=== PATIENT | female | born 1965 | race Caucasian/White ===

== ENCOUNTER 2020-11-22 09:07 | Outpatient (REF) | payer OTHER, SELFPAY ==
--- NOTE | 2020-11-22 09:11 | MM_ITS ---
EXAMINATION: MM SCREENING DIGITAL BREAST TOMOSYNTHESIS, BILATERAL CLINICAL INFORMATION: Screening. Asymptomatic. The lifetime risk of breast cancer based on the Tyrer-Cuzick Model is 7%. COMPARISON: Mammography: 12/26/2018, 12/06/2017, 12/13/2016 TECHNIQUE: Digital breast tomosynthesis is performed in both the craniocaudal and mediolateral oblique views along with computer-aided detection (CAD). Synthesized 2D images are generated from the tomosynthesis. FINDINGS: The breasts are almost entirely fatty (ACR BI-RADS breast composition Category a). There are no significant masses, abnormal calcifications, or other abnormalities. No significant changes from prior studies. MM/MM tomosynthesis screening BI IMPRESSION: No mammographic evidence of malignancy. ASSESSMENT: BI-RADS 1: Negative RECOMMENDATION: Routine annual mammography screening. This patient's information was entered into a reminder system with a target due date for their next mammogram.
== END 2020-11-22 09:08 | disposition home or self-care (01) ==
LOC: HO.MAMMO 09:07
PROVIDERS: PCP Internal Medicine; Visit Provider Obstetrics & Gynecology
DX: Z12.31 Encounter for screening mammogram for malignant neoplasm of breast (principal)
CPT/HCPCS: 77063; 77067

== ENCOUNTER 2021-11-26 13:07 | Outpatient (REF) | payer OTHER, SELFPAY ==
--- NOTE | ~2021-11-26 | MM_ITS ---
EXAMINATION: MM SCREENING DIGITAL BREAST TOMOSYNTHESIS, BILATERAL CLINICAL INFORMATION: Screening. Asymptomatic. The lifetime risk of breast cancer based on the Tyrer-Cuzick Model is 7%. COMPARISON: Mammography: 11/22/2020, 12/26/2018 TECHNIQUE: Digital breast tomosynthesis is performed in both the craniocaudal and mediolateral oblique views along with computer-aided detection (CAD). Synthesized 2D images are generated from the tomosynthesis. FINDINGS: The breasts are almost entirely fatty (ACR BI-RADS breast composition Category a). Background stromal and fibroglandular densities are stable. No developing density or architectural abnormality. No abnormal calcifications. The axilla and skin contours are unremarkable. MM/MM tomosynthesis screening BI IMPRESSION: No mammographic evidence of malignancy. ASSESSMENT: BI-RADS 1: Negative RECOMMENDATION: Routine annual mammography screening. This patient's information was entered into a reminder system with a target due date for their next mammogram.
== END 2021-11-26 13:08 | disposition home or self-care (01) ==
LOC: HO.MAMMO 13:07
PROVIDERS: PCP Internal Medicine; Visit Provider Internal Medicine
DX: Z12.31 Encounter for screening mammogram for malignant neoplasm of breast (principal)
CPT/HCPCS: 77063; 77067

== ENCOUNTER 2022-12-10 10:34 | Outpatient (REF) | payer OTHER, SELFPAY ==
--- NOTE | ~2022-12-10 | XR_ITS ---
EXAMINATION: XR RIBS, BILATERAL CLINICAL INFORMATION: Pleurodynia. COMPARISON: None. TECHNIQUE: 3 views of the bilateral ribs were obtained. FINDINGS: Lungs are clear. No consolidation, pneumothorax, or pleural effusion. The cardiomediastinal silhouette and pulmonary vasculature are normal. Osseous structures are unremarkable. Ribs are intact. No fractures are identified. XR/XR ribs BI min 4V w CXR1V IMPRESSION: Unremarkable examination.
== END 2022-12-10 10:35 | disposition home or self-care (01) ==
LOC: HO.HMGCX 10:34
PROVIDERS: Visit Provider Physician Assistant
DX: R07.81 Pleurodynia (principal)
CPT/HCPCS: 71111

== ENCOUNTER 2023-03-29 07:44 | Outpatient (REF) | payer OTHER, SELFPAY ==
--- NOTE | ~2023-03-29 | MM_ITS ---
EXAMINATION: MM SCREENING DIGITAL BREAST TOMOSYNTHESIS, BILATERAL CLINICAL INFORMATION: Screening. Asymptomatic. The lifetime risk of breast cancer based on the Tyrer-Cuzick Model is 7%. COMPARISON: Mammography: 11/26/2021, 11/22/2020, 12/26/2018 TECHNIQUE: Digital breast tomosynthesis is performed in both the craniocaudal and mediolateral oblique views along with computer-aided detection (CAD). Synthesized 2D images are generated from the tomosynthesis. FINDINGS: The breasts are almost entirely fatty (ACR BI-RADS breast composition Category a). Background stromal markings and fibroglandular densities are stable. There are no significant masses, abnormal calcifications, or other abnormalities. No architectural abnormality or developing density or significant change from prior studies. The axilla and skin contours are unremarkable. No significant changes from prior studies. MM/MM tomosynthesis screening BI IMPRESSION: No mammographic evidence of malignancy. ASSESSMENT: BI-RADS 1: Negative RECOMMENDATION: Routine annual mammography screening. This patient's information was entered into a reminder system with a target due date for their next mammogram.
== END 2023-03-29 07:45 | disposition home or self-care (01) ==
LOC: HO.MAMMO 07:44
PROVIDERS: PCP Internal Medicine; Visit Provider Internal Medicine
DX: Z12.31 Encounter for screening mammogram for malignant neoplasm of breast (principal)
CPT/HCPCS: 77063; 77067

== ENCOUNTER → 2023-08-27 09:24 | Outpatient (BNVA) | payer OTHER, SELFPAY | PROVIDERS: PCP Internal Medicine; Visit Provider Internal Medicine | DX: S39.012A Strain of muscle, fascia and tendon of lower back, initial encounter (principal); W18.40XA Slipping, tripping and stumbling without falling, unspecified, initial encounter | CPT/HCPCS: 99202 ==

== ENCOUNTER 2023-12-20 18:13 | Emergency (ER) | payer OTHER, SELFPAY ==
--- NOTE | ~2023-12-20 | XR_ITS ---
EXAMINATION: XR CHEST CLINICAL INFORMATION: Concern for aspiration COMPARISON: None available. TECHNIQUE: 2 views of the chest were obtained. FINDINGS: No significant abnormality is noted involving the heart, lungs, mediastinum, bony thorax or soft tissues. XR/XR chest 2V IMPRESSION: Unremarkable examination.
--- NOTE | ~2023-12-20 | CT_ITS ---
EXAMINATION: CT HEAD WITHOUT CONTRAST CLINICAL INFORMATION: Seizure. Syncope. COMPARISON: None available. TECHNIQUE: Contiguous axial imaging was performed from the skull base to vertex without intravenous administration of contrast. This CT examination was performed using dose optimization techniques as appropriate, variously including the following: *Automated exposure control. *Adjustment of mA and/or kV according to patient size (this includes techniques or standardized protocols for targeted exams where dose is matched to indication/reason for exam; i.e. extremities or head). *Use of iterative reconstruction technique. DLP: 626 mGy-cm FINDINGS: There is no evidence of acute intracranial hemorrhage or edematous territorial infarction. Coats-white matter differentiation is preserved. There is no abnormal attenuation within the brain parenchyma. The ventricles are normal in morphology and size. No evidence for obstructive hydrocephalus. Normal positioning of the cerebellar tonsils. The suprasellar cistern remains widely patent. No abnormal mass effect or midline shift. No extra-axial fluid collections. No acute soft tissue or osseous abnormalities. Mild mucosal thickening of the paranasal sinuses. The mastoid air cells and middle ear cavities are clear. CT/CT head/brain wo IV con IMPRESSION: No evidence of acute intracranial hemorrhage or edematous territorial infarction. No abnormal mass effect on the noncontrast evaluation.
[2023-12-20 18:16] VITALS: BP 151/76; PULSE 96; RESP 18; TEMP 36.4; O2SAT 94; BMI 32.1
--- NOTE | 2023-12-20 18:17 | ED.GENADULT ---
HPI - General Adult General Chief complaint: Neuro Symptoms/Deficit Stated complaint: ?Seizure Time Seen by Provider: 12/20/23 18:52 Source: patient and family (patient's son) Mode of arrival: ambulatory Limitations: no limitations History of Present Illness HPI narrative: Patient is a 58 year old assigned female at with no reported medical history presenting to the emergency department today after a syncopal episode. Patient states that yesterday she had a painful headache behind her eyes and continues to have the headache today. Patient states that she went to take a drink of her coffee and felt a large air bubble go down with it, causing pain and pressure in the center of her chest and then she passed out. Patient denies any current dizziness, lightheadedness, abdominal pain, nausea, vomiting, fever, chills, blurry vision, double vision, loss of vision, chest pain, difficulty breathing, shortness of breath, back pain, night sweats, pain with urination, increased urinary frequency, increased urinary urgency, blood in her urine or stool, bowel incontinence, bladder incontinence, bowel retention, bladder retention, or any other complaints at this time. Relieving factors: none Exacerbating factors: none Associated symptoms: syncope Treatments prior to arrival: none Related Data Home Medications Medication Instructions Recorded Confirmed ketoconazole 2 % shampoo topical 12/10/22 Previous Rx's Medication Instructions Recorded cyclobenzaprine 10 mg tablet 10 mg PO BEDTIME PRN muscle spasm 12/10/22 #14 tabs lidocaine 4 % topical patch 1 patch topical DAILY PRN pain #15 12/10/22 (AsperFlex (lidocaine)) ea spirometers and accessories #1 ea 12/10/22 Allergies Allergy/AdvReac Type Severity Reaction Status Date / Time ibuprofen Allergy Hives Verified 12/20/23 18:25 pseudoephedrine Allergy Unknown Verified 12/20/23 18:25 [From [facility]] Review of Systems Constitutional: Constitutional: Reports no additional constitutional complaints, Denies chills, Denies fever(s), Reports headache(s) and Denies night sweats Eyes: Eyes: Reports no additional eye complaints, Denies blurry vision, Denies change in vision, Denies diplopia, Denies eye discharge, Denies loss of vision and Denies eye pain ENT: Denies dizziness and Reports headache(s) Cardiovascular: Cardiovascular: Reports no additional cardiovascular complaints, Denies chest pain, Reports syncope, Denies lightheadedness, Denies Loss of Consciousness and Denies dyspnea Respiratory: Respiratory: Reports no additional respiratory complaints and Denies dyspnea Gastrointestinal: Gastrointestinal: Reports no additional gastrointestinal complaints, Denies abdominal pain, Denies melena, Denies hematochezia, Denies change in bowel habits and Denies change in stool character Genitourinary: Genitourinary: Denies hematuria, Denies urinary frequency, Denies dysuria, Denies urinary incontinence, Denies urinary hesitancy and Denies urinary urgency Musculoskeletal: Musculoskeletal: Reports no additional musculoskeletal complaints, Denies numbness and Denies tingling Neurologic: Denies dizziness, Reports syncope, Reports headache(s), Denies loss of vision, Denies numbness and Denies tingling Psychiatric: Psychiatric: Reports no additional psychiatric complaints Endocrine: Endocrine: Reports no additional endocrine complaints Hematologic/Lymphatic: Hematologic/Lymphatic: Reports no additional hematologic/lymphatic complaints Allergic/Immunologic: Allergic/Immunologic: Reports no additional allergic/immunologic complaints PMFSH Past Medical History Attestation statement: The following information was validated with the patient. (all information validated with the patient's son) Source: old records reviewed, obtained from family (patient's son provided additional history and confirmed the history provided by the patient.) and nursing notes reviewed Social History Social History Alcohol intake: never Smoked in Last 30 Days: No Use of substances other than those prescribed or required for medical reasons: No Advance Directives: No Advance Directives Information Provided: No Patient : No Physical Exam ED Vital Signs: Vital Signs - 24 hr 12/20/23 18:16 12/20/23 19:08 12/20/23 21:06 Temperature 97.6 F 98.5 F 98.5 F Pulse Rate 96 85 67 Respiratory Rate 18 16 18 Blood Pressure 151/76 H 127/78 124/68 Pulse Oximetry 94 96 97 Oxygen Delivery Method Room Air Room Air Room Air BMI result Body Mass Index 32.1 Const General: cooperative, no acute distress, alert and awake Nutritional Appearance: well nourished Orientation/consciousness: patient oriented x3 Limitations: no limitations HENMT Head: Yes normal to inspection and Yes atraumatic Ears: hearing grossly normal bilaterally and external ears normal General nose exam: Normal external nose present, no nasal discharge noted and no epistaxis Face and sinus: Yes normal facial exam, No abrasion and No laceration Mouth: Normal oral and palatal mucosa present, no drooling and no muffled voice Eyes General: appearance normal, both eyes and all related structures Periorbital: periorbital findings normal Eyelids: Yes eyelids normal Conjunctivae: conjunctivae normal Pupils: Equal, round and reactive pupils present EOM: EOMs intact bilaterally Neck Neck: Yes normal visual inspection, Yes full ROM and Yes no lymphadenopathy Chest Chest palpation & inspection: normal inspection of the chest Resp Effort & Inspection: normal respiratory effort and able to speak in complete sentences GI Inspection: Yes normal to inspection Neuro General: patient oriented x3 and moves all extremities Cranial nerves: Yes Equal, round and reactive pupils present Cognition (Neuro): normal cognition Motor exam (neuro): 5/5 motor strength present throughout Sensory Exam: Normal double simultaneous stimulation for sensation Coordination: rriqaz-ko-[id number] test normal Extrem General: Yes normal to inspection, Yes full ROM and Yes capillary refill normal Psych Appearance: grossly normal Mental Status: mental status grossly normal Affect: normal affect Attitude: cooperative Thought process: Normal thought process present Thought content: Normal thought content present Insight: Good insight present (Psych) Course Course Course Narrative: RME:?58 yo female w/ no pmhx here for evaluation of headache, blurred vision, and fatigue x1 day. Reports episode of drinking her coffee this morning, took a big gulp that hurt her throat going down, does not recall what happened after that. states that he watched her eyes rolled into the back of her head which lasted for about 30 seconds. She became pale, diaphoretic and clammy. When she came to she was mildly confused. States that she did not seek medical attention at the time of incident. Reports increased fatigue and continued headache prompting her to come to the ED. denies fever, chills, chest pain, shortness of breath, dyspnea, wheezing, nausea or vomiting. AOX3. No focal neuro deficits. perrla. lungs CTA b/l. labs, lactic, cxr order to r/o aspiration, CT Full HPI, ROS and PE to be performed by the primary ED provider. Medications Administered Discontinued Medications Generic Name Dose Route Start Last Admin Trade Name Freq PRN Reason Stop Dose Admin Sodium Chloride 1,000 mls @ 999 mls/hr 12/20/23 19:30 12/20/23 21:00 Ns IV 12/20/23 20:30 Infused .Q1H1M TATE Infusion Metoclopramide HCl 10 mg 12/20/23 19:21 12/20/23 19:34 Metoclopramide Hcl 10 Mg/2 Ml Vial IVPUSH 12/20/23 19:22 10 mg ONCE ONE Administration Medical Decision Making Medical Decision Making [facility] Narrative: Patient is a 58 year old assigned female at with no reported medical history presenting to the emergency department today with a headache and a syncopal episode. Patient's physical exam was unremarkable. Patient's blood work was unremarkable. Patient's EKG was unremarkable. Patient's chest x-ray and head CT showed no acute process. I explained my physical exam findings as well as all test results to the patient and the patient's son. I answered all questions asked by the patient and the patient's son. I stressed the importance of the patient taking her medication as prescribed. I stressed the importance of the patient following up with her primary care provider and a neurologist. I stressed the importance of the patient returning to the emergency department immediately if her symptoms were to worsen or if she were to develop any dizziness, shortness of breath, difficulty breathing, chest pain, blurry vision, loss of vision, nausea, vomiting, abdominal pain, fever, chills, back pain, or any other complaints. Patient and the patient's son verbalized agreement and understanding with this treatment plan and discharge. Differential Diagnosis Differential Diagnoses: The differential diagnosis associated with the presentation includes Migraine Complex migraine Vasovagal syncope Syncopal episode Admission/Observation Consideration of admission/observation: Escalation of care including admission/observation considered Patient would have been admitted to the hospital had her work up had any findings where hospital admission was appropriate and her clinical presentation warranted hospital admission. Lab Data [facility] Lab Attestation statement: I reviewed the patient's lab results. My interpretation of these results are in the [facility] Rationale portion of this note. 12/20/23 18:28 12/20/23 18:28 Labs: Lab Results 12/20/23 Range/Units 18:28 WBC 5.0 (4.8-10.8) X10*3/uL RBC 4.49 (4.20-5.50) X10*6/uL Hgb 13.5 (12.0-16.0) g/dl Hct 40.3 (37.0-47.0) % MCV 89.8 (80.0-98.0) fL MCH 30.1 (27.0-33.0) pg MCHC 33.5 (31.0-35.0) g/dl RDW 13.3 (11.0-16.0) % Plt Count 237 (160-400) X10*3/uL MPV 10.3 (9.4-12.3) fL Immature Gran % (Auto) 1.2 H (0.0-0.4) % Neut % (Auto) 73.1 H (45-73) % Lymph % (Auto) 13.1 L (20-40) % [place] % (Auto) 12.2 H (2-11) % Eos % (Auto) 0.0 (0-4) % Baso % (Auto) 0.4 (0-2) % Lymph # (Auto) 0.7 L (1.2-4.9) X10*3/uL [place] # (Auto) 0.6 (0.1-1.2) X10*3/uL Eos # (Auto) 0.0 (0.0-0.4) X10*3/uL Baso # (Auto) 0.0 (0.0-0.2) X10*3/uL Abs Immat Gran (auto) 0.06 H (0.00-0.03) X10*3/uL Absolute Neuts (auto) 3.6 (2.0-8.3) x10*3/uL Absolute Nucleated RBC 0.000 (0.0-0.012) X10*3/uL Nucleated RBC % (auto) 0.0 (0.0-0.2) /100WBC Sodium 142 (135-145) mmol/L Potassium 3.9 (3.3-5.1) mmol/L Chloride 106 (96-108) mmol/L Carbon Dioxide 25 (22-29) mmol/L Anion Gap 15 (12-20) BUN 12 (9-16) mg/dL Creatinine 0.98 (0.5-1.4) mg/dL Estim Creat Clear Calc 64.3 Estimated GFR 58 Random Glucose 102 (60-115) mg/dL Lactic Acid 0.6 (0.5-2.0) mmol/L Calcium 9.5 (8.4-10.2) mg/dL Magnesium 1.8 (1.6-2.6) mg/dL Total Bilirubin 0.3 (0.0-1.0) mg/dL Direct Bilirubin 0.2 (0.0-0.5) mg/dL AST 18 (5-31) U/L ALT 17 (0-31) U/L Alkaline Phosphatase 59 (39-117) U/L Troponin I High Sens < 2.7 (<3.5-17.0) ng/L Total Protein 6.9 (6.5-8.0) g/dL Albumin 4.5 (3.5-5.0) g/dL Lipase 28 (8-78) U/L Independent Interpretation I performed an independent interpretation of an: EKG, Plain X-Ray and CT Scan Interpretation: My interpretation is in agreement with the radiologist's impression of this imaging study. EXAMINATION: CT HEAD WITHOUT CONTRAST CLINICAL INFORMATION: Seizure. Syncope. COMPARISON: None available. TECHNIQUE: Contiguous axial imaging was performed from the skull base to vertex without intravenous administration of contrast. This CT examination was performed using dose optimization techniques as appropriate, variously including the following: *Automated exposure control. *Adjustment of mA and/or kV according to patient size (this includes techniques or standardized protocols for targeted exams where dose is matched to indication/reason for exam; i.e. extremities or head). *Use of iterative reconstruction technique. DLP: 626 mGy-cm FINDINGS: There is no evidence of acute intracranial hemorrhage or edematous territorial infarction. Coats-white matter differentiation is preserved. There is no abnormal attenuation within the brain parenchyma. The ventricles are normal in morphology and size. No evidence for obstructive hydrocephalus. Normal positioning of the cerebellar tonsils. The suprasellar cistern remains widely patent. No abnormal mass effect or midline shift. No extra-axial fluid collections. No acute soft tissue or osseous abnormalities. Mild mucosal thickening of the paranasal sinuses. The mastoid air cells and middle ear cavities are clear. CT/CT head/brain wo IV con IMPRESSION: No evidence of acute intracranial hemorrhage or edematous territorial infarction. No abnormal mass effect on the noncontrast evaluation. Dictated By: Meet Barrientos DO Signed By: Electronically signed by Meet aBrrientos DO 12/20/231922 EXAMINATION: XR CHEST CLINICAL INFORMATION: Concern for aspiration COMPARISON: None available. TECHNIQUE: 2 views of the chest were obtained. FINDINGS: No significant abnormality is noted involving the heart, lungs, mediastinum, bony thorax or soft tissues. XR/XR chest 2V IMPRESSION: Unremarkable examination. Dictated By: Jose Dennis Signed By: Electronically signed by Jose Dennis 12/20/232037 Vent. Rate 92 BPM NC interval 146 ms QRS duration 78 ms QT/QTc-Baz 358/442 ms P-R-T axes 34 -5 21 Normal sinus rhythm Cannot rule out anterior infarct, age undetermined Abnormal ECG 12/20/2023 1835 Radiology Impression Discussion of test interpretation with radiology: I have reviewed the radiologist's reading. Independent Historian Clinical information obtained from an independent historian. History obtained from or confirmed by: Other (patient's son provided additional history and confirmed the history provided by the patient.) Discharge Plan Discharge Clinical Impression: Migraine, Syncope, vasovagal Patient Disposition: Home, Self-Care Instructions: Migraine Headache (ED), Syncope (DC) Additional Instructions: Follow up with your primary care provider and a neurologist. Return to the emergency department immediately if your symptoms worsen or if you develop any dizziness, shortness of breath, difficulty breathing, chest pain, blurry vision, loss of vision, nausea, vomiting, abdominal pain, fever, chills, back pain, or any other complaints. Prescriptions: No Action ketoconazole 2 % shampoo topical (DME) spirometers and accessories Device See Rx Instructions .Route Qty: 1 0RF Rx Instructions: As directed cyclobenzaprine 10 mg tablet 10 mg PO BEDTIME PRN (Reason: muscle spasm) Qty: 14 0RF lidocaine [AsperFlex (lidocaine)] 4 % adhesive patch,medicated 1 patch topical DAILY PRN (Reason: pain) Qty: 15 0RF Referrals: [facility] [place] [facility] [place]Provider Group] (Call to establish and follow up with a neurologist (migraine management).) Shaye Young MD [Primary Care Provider] - Stand Alone Forms: Work/School Release Interventions: ED Discharge Assessment Last Done: 12/20/23 21:09 Discharge Date/Time: 12/20/23 21:10 Print Language: Grenadian
--- NOTE | 2023-12-20 18:26 | ECG_ITS ---
Test Reason : SYNCOPE Blood Pressure : / mmHG Vent. Rate : 092 BPM Atrial Rate : 092 BPM P-R Int : 146 ms QRS Dur : 078 ms QT Int : 358 ms P-R-T Axes : 034 -05 021 degrees QTc Int : 442 ms Normal sinus rhythm Normal ECG No previous ECGs available Referred By: Sara Etienne Electronically Signed By:Petr Ariza
[2023-12-20 18:33] LABS: MANUAL DIFF FLAG NO
[2023-12-20 18:36] LABS: Basophils Percent Auto 0.4 % (0-2); Hematocrit 40.3 % (37.0-47.0); Hemoglobin 13.5 g/dl (12.0-16.0); Imm Gran Abs Auto 0.06 X10*3/uL (0.00-0.03); Imm Gran Pct Auto 1.2 % (0.0-0.4); Lymphocytes Absolute Auto 0.7 X10*3/uL (1.2-4.9); Lymphocytes Percent Auto 13.1 % (20-40); Mean Corpuscular HGB Conc 33.5 g/dl (31.0-35.0); Mean Corpuscular Hemoglobin 30.1 pg (27.0-33.0); Mean Corpuscular Volume 89.8 fL (80.0-98.0); Mean Platelet Volume 10.3 fL (9.4-12.3); Monocytes Absolute Auto 0.6 X10*3/uL (0.1-1.2); Monocytes Percent Auto 12.2 % (2-11); Neutrophils Absolute Auto 3.6 x10*3/uL (2.0-8.3); Neutrophils Percent Auto 73.1 % (45-73); Platelet Count 237 X10*3/uL (160-400); Red Blood Count 4.49 X10*6/uL (4.20-5.50); Red Cell Distribution Width 13.3 % (11.0-16.0)
[2023-12-20 18:43] LABS: Lactic Acid 0.6 mmol/L (0.5-2.0)
[2023-12-20 18:57] LABS: Anion Gap 15 (12-20); Blood Urea Nitrogen 12 mg/dL (9-16); Calcium 9.5 mg/dL (8.4-10.2); Carbon Dioxide 25 mmol/L (22-29); Chloride 106 mmol/L (96-108); Creatinine Clr Calc Pharmacy 64.3; Estimated Glomerular Filt Rate 58; Glucose Random 102 mg/dL (60-115); Lipase 28 U/L (8-78); Magnesium 1.8 mg/dL (1.6-2.6); Potassium 3.9 mmol/L (3.3-5.1); Sodium 142 mmol/L (135-145); Troponin-I High Sensitivity < 2.7 ng/L (<3.5-17.0)
[2023-12-20 19:08] VITALS: BP 127/78; PULSE 85; RESP 16; TEMP 36.9; O2SAT 96
[2023-12-20 19:33] LABS: Alanine Aminotransferase 17 U/L (0-31); Albumin Level 4.5 g/dL (3.5-5.0); Alkaline Phosphatase 59 U/L (39-117); Aspartate Amino Transferase 18 U/L (5-31); Bilirubin Direct 0.2 mg/dL (0.0-0.5); Bilirubin Total 0.3 mg/dL (0.0-1.0); Total Protein 6.9 g/dL (6.5-8.0)
[2023-12-20] MEDS: 0.9 % Sodium Chloride 1,000 ML 999 ML IV (19:34)
[2023-12-20] MEDS: Metoclopramide HCl 10 MG/2 ML VIAL IVPUSH (19:34)
[2023-12-20 21:06] VITALS: BP 124/68; PULSE 67; RESP 18; TEMP 36.9; O2SAT 97
== END 2023-12-20 21:10 | disposition home or self-care (01) ==
PROVIDERS: Physician Assistant Medical; Emergency Provider Emergency Medicine; PCP Internal Medicine
DX: G43.909 Migraine, unspecified, not intractable, without status migrainosus (principal); R55 Syncope and collapse
CPT/HCPCS: 36415; 70450; 71046; 80048; 80076; 83605; 83690; 83735; 84484; 85025; 93005; 96361; 96374; 99284; 99285; J2765

== ENCOUNTER → 2023-12-20 18:26 | Outpatient (BNV) | payer OTHER, SELFPAY | PROVIDERS: Emergency Provider Emergency Medicine; PCP Internal Medicine; Visit Provider Internal Medicine Cardiovascular Disease | DX: R55 Syncope and collapse (principal) | CPT/HCPCS: 93010 ==

== ENCOUNTER 2024-04-05 14:51 | Outpatient (REF) | payer OTHER, SELFPAY | END 2024-04-05 14:52 | disposition home or self-care (01) | LOC: HO.MAMMO 14:51 | PROVIDERS: PCP Internal Medicine; Visit Provider Internal Medicine | DX: Z12.31 Encounter for screening mammogram for malignant neoplasm of breast (principal) | CPT/HCPCS: 77063; 77067 ==

== ENCOUNTER → 2024-04-05 15:00 | Outpatient (BNV) | payer OTHER, SELFPAY | PROVIDERS: PCP Internal Medicine; Visit Provider Radiology Diagnostic Radiology | DX: Z12.31 Encounter for screening mammogram for malignant neoplasm of breast (principal) | CPT/HCPCS: 77063; 77067 ==

== ENCOUNTER → 2024-04-20 10:00 | Outpatient (BNVA) | payer OTHER, SELFPAY | PROVIDERS: PCP Internal Medicine; Visit Provider Physician Assistant Medical | DX: S80.211A Abrasion, right knee, initial encounter (principal); S83.92XA Sprain of unspecified site of left knee, initial encounter; W01.0XXA Fall on same level from slipping, tripping and stumbling without subsequent striking against object, initial encounter; M54.42 Lumbago with sciatica, left side | CPT/HCPCS: 99203 ==

== ENCOUNTER → 2024-04-26 09:40 | Outpatient (BNVA) | payer OTHER, SELFPAY | PROVIDERS: PCP Internal Medicine; Visit Provider Physician Assistant Medical | DX: S29.012A Strain of muscle and tendon of back wall of thorax, initial encounter (principal); S39.012A Strain of muscle, fascia and tendon of lower back, initial encounter; W01.0XXA Fall on same level from slipping, tripping and stumbling without subsequent striking against object, initial encounter | CPT/HCPCS: 99213 ==

== ENCOUNTER → 2024-10-06 09:50 | Outpatient (BNVA) | payer OTHER, SELFPAY | PROVIDERS: PCP Internal Medicine; Visit Provider Physician Assistant Medical | DX: S62.655A Nondisplaced fracture of middle phalanx of left ring finger, initial encounter for closed fracture (principal); W20.8XXA Other cause of strike by thrown, projected or falling object, initial encounter | CPT/HCPCS: 99202 ==

== ENCOUNTER 2025-05-04 07:40 | Outpatient (REF) | payer BC, SELFPAY ==
--- OUTSIDE RECORDS SUMMARY | 2025-05-04 07:43 | XMS_ITS | Patient Health Record ---
Author Organization [facility] Address [address] [place] [address] Care Team Providers Care Intraoperative Neuro Tech Name Role Phone Glenys Rosen Primary Care Provider Unavailabl e Allergies Allergen (clinical drug ingredient) Drug/Non Drug Allergy documented on EMR Reaction Allergy Type Onset Date Status ibuprofen Ibuprofen Unknown Drug Allergy Active Sudafed Unknown Drug Allergy Active Reason For Referral No Information Medications Medication SIG (Take, Route, Frequency, Duration) Notes Start Date End Date Status Omeprazole 20 MG 1 capsule 30 minutes before morning meal Orally Once a day Active Fluticasone Furoate 27.5 MCG/SPRAY 1 spray in each nostril Nasally Once a day Active Plan Of Treatment No Information Medical (General) History Medical History History ICD Code heart murmur gastroesophageal reflux disease (GERD) diverticulosis OA of lumbar spine Surgical History Surgery Date(Month/Year) Tubal ligation 1997 Cholecystectomy Left peroneal brevis tendon repair 0
== END 2025-05-04 07:41 | disposition home or self-care (01) ==
LOC: HO.MAMMO 07:40
PROVIDERS: PCP Internal Medicine; Visit Provider Internal Medicine
DX: Z12.31 Encounter for screening mammogram for malignant neoplasm of breast (principal)
CPT/HCPCS: 77063; 77067

== ENCOUNTER → 2025-05-04 07:45 | Outpatient (BNV) | payer BC, SELFPAY | PROVIDERS: PCP Internal Medicine; Visit Provider Internal Medicine | DX: Z12.31 Encounter for screening mammogram for malignant neoplasm of breast (principal) | CPT/HCPCS: 77063; 77067 ==